=== PATIENT | female | born 1985 | race Hispanic/Latino ===

== ENCOUNTER 2017-04-06 02:25 | Observation (INO) | payer SELFPAY ==
[~2017-04-06] VITALS: Ht 154.9 cm; Wt 104.3 kg
[2017-04-06] MEDS ORDERED: DEXAMETHASONE SOD PHOSPHATE 10MG/ML 1ML VIAL ONE (02:42)
[2017-04-06] MEDS ORDERED: LIDOCAINE HCL 2% VISCOUS 15 ML UDCUP ONE (02:42)
[2017-04-06] MEDS ORDERED: LORAZEPAM 1 MG TABLET ONE (02:59)
[2017-04-06] MEDS ORDERED: KETOROLAC TROMETHAMINE 30MG/ML ONE (04:18)
[2017-04-06 04:26] LABS: HEMATOCRIT 39.5 % (36-48); LYMPHOCYTES % (AUTO) 10.1 % (21.0-51.0); MEAN CORPUSCULAR HEMOGLOBIN 28.2 pg (27.0-33.0); MEAN CORPUSCULAR HGB CONC 33.5 g/dL (32.0-36.0); MEAN CORPUSCULAR VOLUME 84.1 fL (79-99); MONOCYTES % (AUTO) 4.2 % (3.0-13.0); NEUTROPHILS % (AUTO) 82.7 % (40.0-77.0); NUCLEATED RED BLOOD CELLS 0.1 % (0.0-0.19); PLATELET COUNT (AUTO) 215 K/uL (130-400); RED CELL DISTRIBUTION WIDTH 14.4 % (11.0-15.5); WHITE BLOOD COUNT (AUTO) 17.4 K/uL (4.8-10.8)
[2017-04-06 04:33] LABS: CREATININE 0.7 mg/dL (0.5-1.5); POTASSIUM 4.2 mmol/L (3.5-5.1)
[2017-04-06] MEDS ORDERED: IOPAMIDOL-370 75 ML VIAL IV ONE (05:01)
[2017-04-06] MEDS ORDERED: AMPICILLIN SODIUM/SULBACTAM NA 1.5GM VIAL ONE ×2 (07:43→16:39)
[2017-04-06] MEDS ORDERED: UNASYN 3GM+NS 100ML 100 ML IV SCH (08:00)
[2017-04-06] MEDS ORDERED: ONDANSETRON HCL 4 MG/2 ML VIAL ONE ×2 (11:11→18:34)
[2017-04-06] MEDS ORDERED: MORPHINE SULFATE 2 MG/ML 1ML SYG ONE ×2 (11:11→18:34)
[2017-04-06] MEDS ORDERED: METRONIDAZOLE 500MG/100ML BAG 100 ML ONE ×2 (12:35→20:41)
[2017-04-06] MEDS ORDERED: METHYLPREDNISOLONE SOD SUCC 40MG/ML 1ML ONE (12:35)
[2017-04-06] MEDS ORDERED: IBUPROFEN 400 MG TABLET ONE (12:35)
[2017-04-06] MEDS ORDERED: MORPHINE-NS 50 MG/50 ML 50 ML IV PRN (20:45)
[2017-04-06] MEDS ORDERED: NALOXONE HCL 0.4 MG/1 ML ML IVP PRN (20:45)
[2017-04-06] MEDS ORDERED: IBUPROFEN 400 MG TABLET PO SCH (21:00)
[2017-04-06] MEDS ORDERED: ONDANSETRON ODT 4 MG TAB ONE (21:08)
[2017-04-06] MEDS ORDERED: METHYLPREDNISOLONE SOD SUCC 40MG/ML 1ML IVP ONE (21:45)
== END 2017-04-06 22:44 | disposition home or self-care (01) ==
LOC: EDH 02:25 → EDHIP 02:26 → UNDOADMOB 07:55 → EDHIP 07:55
PROVIDERS: ADMIT Internal Medicine; ATTEND Internal Medicine
DX: J02.9 Acute pharyngitis, unspecified (principal); Z90.49 Acquired absence of other specified parts of digestive tract
CPT/HCPCS: 36415; 70491; 80048; 81025; 85025; 87070; 87076; 99285; G0378 ×20; J0295 ×2; J1100; J1885; J2270; J2405 ×2; J2920; J3490 ×2; Q9967

== ENCOUNTER 2017-04-08 09:49 | Emergency (ER) | payer SELFPAY ==
[2017-04-08] MEDS ORDERED: DEXAMETHASONE SOD PHOSPHATE 10MG/ML 1ML VIAL ONE (10:27)
[2017-04-08] MEDS ORDERED: KETOROLAC TROMETHAMINE 60 MG/2 ML VIAL ONE (10:27)
== END 2017-04-08 11:19 | disposition home or self-care (01) ==
LOC: EDH 09:49
DX: J36 Peritonsillar abscess (principal); Z79.899 Other long term (current) drug therapy
CPT/HCPCS: 96372 ×2; 99284; J1100; J1885

== ENCOUNTER 2017-04-21 13:38 | Emergency (ER) | payer SELFPAY ==
[2017-04-21 14:20] LABS: EOSINOPHILS % (AUTO) 1.2 % (0.0-8.0); HEMATOCRIT 36.5 % (36-48); LYMPHOCYTES % (AUTO) 16.4 % (21.0-51.0); MEAN CORPUSCULAR HEMOGLOBIN 28.3 pg (27.0-33.0); MEAN CORPUSCULAR HGB CONC 33.9 g/dL (32.0-36.0); MEAN CORPUSCULAR VOLUME 83.4 fL (79-99); MONOCYTES % (AUTO) 10.6 % (3.0-13.0); NEUTROPHILS % (AUTO) 70.8 % (40.0-77.0); PLATELET COUNT (AUTO) 299 K/uL (130-400); RED BLOOD CELL COUNT(AUTO) 4.38 MIL/uL (4.00-5.50); RED CELL DISTRIBUTION WIDTH 14.7 % (11.0-15.5); WHITE BLOOD COUNT (AUTO) 6.9 K/uL (4.8-10.8)
[2017-04-21 14:26] LABS: CREATININE 0.9 mg/dL (0.5-1.5); POTASSIUM 3.9 mmol/L (3.5-5.1)
[2017-04-21 14:31] LABS: BILIRUBIN,URINE Small (NEGATIVE); COLOR,URINE Dark Yellow (YELLOW); GLUCOSE, URINE (UA) Negative (NEGATIVE); KETONES,URINE Trace mg/dL (NEGATIVE); LEUKOCYTE ESTERASE ,URINE Large (NEGATIVE); NITRATE,URINE Negative (NEGATIVE); OCCULT BLOOD,URINE Negative (NEGATIVE); PH,URINE 7.5 (5.0-8.0); PROTEIN,URINE Negative (NEGATIVE)
[2017-04-21 14:33] LABS: APPEARANCE,URINE SLIGHTLY CLOUDY (CLEAR)
[2017-04-21 14:38] LABS: AMPHET/METH SCREEN,URINE NEGATIVE (NEGATIVE); BARBITURATE SCREEN, URINE NEGATIVE (NEGATIVE); BENZODIAZEPINES SCREEN,URINE NEGATIVE (NEGATIVE); CANNABINOID SCREEN,URINE NEGATIVE (NEGATIVE); COCAINE SCREEN,URINE NEGATIVE (NEGATIVE); OPIATE SCREEN,URINE NEGATIVE (NEGATIVE); PHENCYCLIDINE SCREEN,URINE NEGATIVE (NEGATIVE)
[2017-04-21 14:45] LABS: BACTERIA,URINE Few /HPF (None Seen); RBC,URINE 0-1 /HPF (0-1)
[2017-04-21 14:46] LABS: SQUAMOUS EPITHELIAL CELL,UR Few /LPF (0-2); TRANSITIONAL EPI CELLS,URINE Few /LPF (None Seen)
[2017-04-21 14:47] LABS: TRICHOMONAS,URINE Rare /LPF (None Seen)
[2017-04-21] MEDS ORDERED: CEFTRIAXONE SODIUM 500 MG VIAL ONE (17:43)
[2017-04-21] MEDS ORDERED: LIDOCAINE HCL-MPF 1% 2ML VIAL ONE (17:44)
== END 2017-04-21 18:04 | disposition home or self-care (01) ==
LOC: EDH 13:38
DX: N39.0 Urinary tract infection, site not specified (principal); A59.9 Trichomoniasis, unspecified; R07.89 Other chest pain; R53.83 Other fatigue
CPT/HCPCS: 36415; 71046; 80048; 80305; 81001; 81025; 84702; 85025; 87804 ×2; 93005; 96372; 99285; J0696; J3490

== ENCOUNTER 2021-03-29 02:39 | Emergency (ER) | payer OTHER ==
[~2021-03-29] VITALS: Ht 154.9 cm; Wt 160.1 kg
[2021-03-29] MEDS ORDERED: IVER3TAB PO (07:25)
[2021-03-29] MEDS ORDERED: DOXY-336 PO (07:27)
[2021-03-29] MEDS ORDERED: BUDE0.255 IH (07:27)
[2021-03-29] MEDS ORDERED: ACETAMINOPHEN 500 MG TABLET PO SCH (07:30)
[2021-03-29 07:58] VITALS: BP 128/81
== END 2021-03-29 07:50 | disposition home or self-care (01) ==
LOC: EDH 02:39
DX: U07.1 COVID-19 (principal); J06.9 Acute upper respiratory infection, unspecified; E66.01 Morbid (severe) obesity due to excess calories; Z68.44 Body mass index [BMI] 60.0-69.9, adult; Z90.49 Acquired absence of other specified parts of digestive tract
CPT/HCPCS: 87635; 87804 ×2; 87880; 93005; 99285; C9803

== ENCOUNTER → 2021-07-24 | Outpatient (CLI) | payer OTHER ==
[~2021-07-24] MED LIST: BUDE0.255 IH; DOXY-336 PO; IVER3TAB PO
== END | disposition home or self-care (01) ==
LOC: RAH 08:42
PROVIDERS: ATTEND Surgery
DX: K21.9 Gastro-esophageal reflux disease without esophagitis (principal); K76.0 Fatty (change of) liver, not elsewhere classified; E66.2 Morbid (severe) obesity with alveolar hypoventilation
CPT/HCPCS: 74240

== ENCOUNTER 2021-10-09 01:13 | Emergency (ER) | payer OTHER ==
[~2021-10-09] VITALS: Ht 154.9 cm; Wt 155.1 kg
[2021-10-09 01:52] VITALS: BP 130/80
[2021-10-09] MEDS ORDERED: ONDA4TAB10 PO (02:00)
[2021-10-09] MEDS ORDERED: LOPE2CAP PO (02:00)
[2021-10-09] MEDS ORDERED: CIPR-278 PO (02:00)
== END 2021-10-09 02:12 | disposition home or self-care (01) ==
LOC: EDH 01:13
DX: K52.9 Noninfective gastroenteritis and colitis, unspecified (principal); Z90.49 Acquired absence of other specified parts of digestive tract
CPT/HCPCS: 99281

== ENCOUNTER 2021-12-20 22:29 | Emergency (ER) | payer OTHER ==
[~2021-12-20] VITALS: Ht 154.9 cm; Wt 151.5 kg
[~2021-12-20 22:29] MED LIST changes: +CIPR-278 PO; +LOPE2CAP PO; +ONDA4TAB10 PO
[2021-12-20] MEDS ORDERED: ACETAMINOPHEN 500 MG TABLET ONE (22:49)
[2021-12-20] MEDS ORDERED: KETOROLAC 30MG VIAL (30MG/ML) ONE (22:50)
[2021-12-20 22:58] LABS: HCG,QUALITATIVE URINE NEGATIVE (NEGATIVE)
[2021-12-20 22:59] LABS: APPEARANCE,URINE CLEAR (CLEAR); BILIRUBIN,URINE NEGATIVE (NEGATIVE); COLOR,URINE LIGHT-YELLOW (YELLOW); GLUCOSE, URINE (UA) >=1000 mg/dL (NEGATIVE); KETONES,URINE NEGATIVE (NEGATIVE); LEUKOCYTE ESTERASE ,URINE 75 Leu/uL (NEGATIVE); NITRATE,URINE NEGATIVE (NEGATIVE); OCCULT BLOOD,URINE SMALL (NEGATIVE); PH,URINE 7.5 (5.0-8.0); PROTEIN,URINE 20 mg/dL (NEGATIVE); UROBILINOGEN,URINE 0.2 mg/dL (0.2-1.0)
[2021-12-20] MEDS ORDERED: ACETAMINOPHEN 325 MG TAB PO ONE (23:00)
[2021-12-20] MEDS ORDERED: KETOROLAC 30MG VIAL (30MG/ML) IVP ONE (23:00)
[2021-12-20] MEDS ORDERED: ONDANSETRON 4MG INJ IVP ONE (23:00)
[2021-12-20] MEDS ORDERED: 0.9%NACL 1000ML 1,000 ML IV ONE (23:00)
[2021-12-20 23:03] LABS: BASOPHILS % (AUTO) 0.4 % (0.0-5.0); EOSINOPHILS % (AUTO) 0.6 % (0.0-8.0); HEMATOCRIT 38.6 % (36-48); LYMPHOCYTES % (AUTO) 24.6 % (21.0-51.0); MEAN CORPUSCULAR HEMOGLOBIN 27.7 pg (27.0-33.0); MEAN CORPUSCULAR HGB CONC 33.4 g/dL (32.0-36.0); MEAN CORPUSCULAR VOLUME 82.8 fL (79-99); MONOCYTES % (AUTO) 7.1 % (3.0-13.0); NEUTROPHILS % (AUTO) 66.9 % (40.0-77.0); PLATELET COUNT (AUTO) 309 K/uL (130-400); RED BLOOD CELL COUNT(AUTO) 4.66 MIL/uL (4.00-5.50); RED CELL DISTRIBUTION WIDTH 14.1 % (11.0-15.5); WHITE BLOOD COUNT (AUTO) 10.6 K/uL (4.8-10.8)
[2021-12-20 23:10] LABS: BACTERIA,URINE RARE /HPF (None Seen); MUCUS,URINE RARE LPF (None Seen); SQUAMOUS EPITHELIAL CELL,UR RARE /HPF (0-2); WBC,URINE 51-100 /HPF (0-1)
[2021-12-20 23:15] LABS: CREATININE 0.9 mg/dL (0.5-1.5); POTASSIUM 3.8 mmol/L (3.5-5.1)
[2021-12-20 23:20] LABS: ALBUMIN 2.9 g/dL (3.5-5.0); TOTAL PROTEIN, SERUM 8.1 g/dL (6.0-8.3)
[2021-12-20] MEDS ORDERED: ACETAMINOPHEN 500 MG TABLET PO ONE (23:30)
[2021-12-21] MEDS ORDERED: CEFTRIAXONE 1G VIAL IVP ONE
[2021-12-21 00:14] VITALS: BP 107/63
[2021-12-21] MEDS ORDERED: CEPH500B PO (00:51)
[2021-12-21] MEDS ORDERED: METF-446 PO (00:51)
== END 2021-12-21 01:03 | disposition home or self-care (01) ==
LOC: EDH 22:29
DX: N10 Acute pyelonephritis (principal); E11.65 Type 2 diabetes mellitus with hyperglycemia; Z79.1 Long term (current) use of non-steroidal anti-inflammatories (NSAID); Z79.84 Long term (current) use of oral hypoglycemic drugs; Z87.440 Personal history of urinary (tract) infections; Z90.49 Acquired absence of other specified parts of digestive tract
CPT/HCPCS: 99284; 74176; 96374; 96375; 96361; 80053; 85025; 87040 ×2; 87077; 87088; 87186; 83605; 81001; 81025; 36415; J0696; J1885

== ENCOUNTER 2022-10-26 12:00 | Inpatient (IN) | payer OTHER ==
[~2022-10-26] VITALS: Ht 154.9 cm; Wt 147.1 kg
[2022-10-27 10:45] LABS: BASOPHILS # (AUTO) 0.04 K/uL (0.00-0.20); BASOPHILS % (AUTO) 0.6 % (0.0-5.0); EOSINOPHILS # (AUTO) 0.12 K/uL (0.00-0.70); EOSINOPHILS % (AUTO) 1.7 % (0.0-8.0); HEMATOCRIT 38.3 % (36-48); IMMATURE GRANULOCYTE ABSOLUTE 0.02 K/uL (0-1); LYMPHOCYTES # (AUTO) 2.4 K/uL (1.0-4.8); LYMPHOCYTES % (AUTO) 33.5 % (21.0-51.0); MEAN CORPUSCULAR HEMOGLOBIN 26.7 pg (27.0-33.0); MEAN CORPUSCULAR HGB CONC 31.6 g/dL (32.0-36.0); MEAN CORPUSCULAR VOLUME 84.4 fL (79-99); MONOCYTES # (AUTO) 0.4 K/uL (0.1-1.0); NEUTROPHILS # (AUTO) 4.1 K/uL (1.8-7.7); NEUTROPHILS % (AUTO) 57.9 % (40.0-77.0); PLATELET COUNT (AUTO) 351 K/uL (130-400); RED BLOOD CELL COUNT(AUTO) 4.54 MIL/uL (4.00-5.50); RED CELL DISTRIBUTION WIDTH 14.2 % (11.0-15.5); WHITE BLOOD COUNT (AUTO) 7.1 K/uL (4.8-10.8)
[2022-10-27 10:59] LABS: ALBUMIN 2.9 g/dL (3.5-5.0); BILIRUBIN,TOTAL 0.5 mg/dL (0.2-1.0); CREATININE 0.7 mg/dL (0.5-1.5); POTASSIUM 4.2 mmol/L (3.5-5.1); TOTAL PROTEIN, SERUM 7.9 g/dL (6.0-8.3)
[2022-10-27 11:33] VITALS: BP 147/81; PULSE 69; RESP 18
[2022-10-29] VITALS (28 sets, daily range): BP systolic 114–155; BP diastolic 53–83; PULSE 58–81; RESP 16–24; O2SAT 100
[2022-10-29] MEDS ORDERED: METRONIDAZOLE 500MG/100ML BAG 200 ML ONE (08:04)
[2022-10-29] MEDS ORDERED: 0.9%NACL 1000ML 1,000 ML IV ONE (08:04)
[2022-10-29] MEDS ORDERED: CEFAZOLIN SODIUM 2 GM VIAL ONE (08:04)
[2022-10-29] MEDS ORDERED: MAGNESIUM SULFATE 1 GM/2 ML VIAL ONE (08:44)
[2022-10-29] MEDS ORDERED: MORPHINE PF 100MG/10ML AMP IV ONE (08:44)
[2022-10-29] MEDS ORDERED: SCOPOLAMINE HYDROBROMIDE 1 EACH ADH..PATCH TD ONE (09:41)
[2022-10-29] MEDS ORDERED: BUPIVACAINE/PF 0.5% 30ML VIAL ONE (10:12)
[2022-10-29] MEDS ORDERED: PROCHLORPERAZINE 10MG/2ML INJ IV PRN (10:30)
[2022-10-29] MEDS ORDERED: NALOXONE HCL 0.4 MG/1 ML ML IVP PRN (10:30)
[2022-10-29] MEDS ORDERED: ONDANSETRON 4MG INJ IVP PRN (10:30)
[2022-10-29] MEDS ORDERED: HYDROCODONE/ACETAMINOPHEN 7.5/325 MG 15 ML UDCUP PO PRN (10:30)
[2022-10-29] MEDS ORDERED: ACETAMINOPHEN 1,000 MG/100 ML VIAL IV ONE (10:54)
[2022-10-29] MEDS ORDERED: METOCLOPRAMIDE 10 MG/2 ML VIAL ONE (11:01)
[2022-10-29] MEDS: LACTATED RINGERS 1000ML 1,000 ML IV SCH ×3 (12:20→23:18)
[2022-10-29] MEDS: ENOXAPARIN SODIUM 30 MG/0.3 ML SQ SCH ×2 (12:21→23:21)
[2022-10-29] MEDS: MORPHINE 2 MG SYG IVP PRN ×3 (12:23→20:44)
[2022-10-29] MEDS: KETOROLAC 30MG VIAL (30MG/ML) IV PRN (15:29)
[2022-10-30] VITALS: BP 105/58; PULSE 54; RESP 18
[2022-10-30 04:00] VITALS: BP 148/67; PULSE 61; RESP 18
[2022-10-30] MEDS: MORPHINE 2 MG SYG IVP PRN (04:01)
[2022-10-30] MEDS: LACTATED RINGERS 1000ML 1,000 ML IV SCH ×2 (04:30→12:15)
[2022-10-30 07:55] VITALS: BP 141/66; PULSE 57; RESP 16
[2022-10-30 08:30] VITALS: O2SAT 96
[2022-10-30] MEDS: KETOROLAC 30MG VIAL (30MG/ML) IV PRN (08:59)
[2022-10-30] MEDS ORDERED: PANTOPRAZOLE 40 MG/VIAL IVP SCH (09:00)
[2022-10-30] MEDS: ENOXAPARIN SODIUM 30 MG/0.3 ML SQ SCH (10:54)
[2022-10-30 12:00] VITALS: BP 160/77; PULSE 65; RESP 16
[2022-10-30] MEDS ORDERED: SIMETHICONE 80 MG TAB.CHEW PO PRN (13:30)
[2022-10-30] MEDS ORDERED: SCOPOLAMINE HYDROBROMIDE 1 EACH ADH..PATCH TD SCH (13:30)
== END 2022-10-30 15:40 | disposition home or self-care (01) | DRG 621 ==
LOC: DAHIP 10-29 07:36 → 4DH 10-29 12:20
PROVIDERS: ADMIT Surgery; ATTEND Surgery
PROC: 0DJ08ZZ Inspection of Upper Intestinal Tract, Via Natural or Artificial Opening Endoscopic (ICD-10-PCS; 2022-10-29)
PROC: 8E0W4CZ Robotic Assisted Procedure of Trunk Region, Percutaneous Endoscopic Approach (ICD-10-PCS; 2022-10-29)
PROC: 0DB64Z3 Excision of Stomach, Percutaneous Endoscopic Approach, Vertical (ICD-10-PCS; principal; 2022-10-29 08:21)
DX: E66.01 Morbid (severe) obesity due to excess calories (principal); Z68.44 Body mass index [BMI] 60.0-69.9, adult; Z20.822 Contact with and (suspected) exposure to COVID-19
CPT/HCPCS: 36415; 43235; 80053; 81025; 82948; 85025; 86850; 86900; 86901; 87426; 93005; 97039; C9113; G0378; J1650; J1885; J2270; J2274; J2765; J3475; J3490; J7030; A4215; A4221; A4222; A4223; A4600; A6260; G8980-CI; G8983-CI; J0690

== ENCOUNTER 2022-11-16 12:02 | Emergency (ER) | payer OTHER ==
[~2022-11-16] VITALS: Ht 154.9 cm; Wt 135.6 kg
[2022-11-16 13:04] LABS: HEMATOCRIT 38.8 % (36-48); MEAN CORPUSCULAR HEMOGLOBIN 27.5 pg (27.0-33.0); MEAN CORPUSCULAR HGB CONC 33.5 g/dL (32.0-36.0); RED BLOOD CELL COUNT(AUTO) 4.73 MIL/uL (4.00-5.50); WHITE BLOOD COUNT (AUTO) 7.5 K/uL (4.8-10.8)
[2022-11-16 13:12] LABS: CREATININE 0.8 mg/dL (0.5-1.5); POTASSIUM 3.8 mmol/L (3.5-5.1)
[2022-11-16 13:16] LABS: ALBUMIN 2.8 g/dL (3.5-5.0); BILIRUBIN,TOTAL 0.6 mg/dL (0.2-1.0); TOTAL PROTEIN, SERUM 7.5 g/dL (6.0-8.3)
[2022-11-16] MEDS ORDERED: ONDANSETRON 4MG INJ IVP ONE (13:30)
[2022-11-16 14:59] LABS: APPEARANCE,URINE CLOUDY (CLEAR); BILIRUBIN,URINE 1 mg/dL (NEGATIVE); COLOR,URINE YELLOW (YELLOW); GLUCOSE, URINE (UA) NEGATIVE (NEGATIVE); KETONES,URINE 150 mg/dL (NEGATIVE); LEUKOCYTE ESTERASE ,URINE 500 Leu/uL (NEGATIVE); NITRATE,URINE NEGATIVE (NEGATIVE); OCCULT BLOOD,URINE LARGE (NEGATIVE); PROTEIN,URINE 100 mg/dL (NEGATIVE); UROBILINOGEN,URINE >=8.0 mg/dL (0.2-1.0)
[2022-11-16 15:01] LABS: ADD UA MICROSCOPIC YES
[2022-11-16 15:08] LABS: BACTERIA,URINE MOD /HPF (None Seen); MUCUS,URINE FEW LPF (None Seen); RBC,URINE 51-100 /HPF (0-1); SQUAMOUS EPITHELIAL CELL,UR MOD /HPF (0-2); UNCLASSIFIED CRYSTAL 2 /HPF (None Seen); WBC,URINE 51-100 /HPF (0-1)
[2022-11-16] MEDS ORDERED: CEFTRIAXONE 1G VIAL IVPB ONE (15:30)
[2022-11-16] MEDS ORDERED: ONDA4TAB10 PO (15:53)
[2022-11-16 16:03] VITALS: BP 112/62; PULSE 64; RESP 16; O2SAT 99
== END 2022-11-16 16:06 | disposition home or self-care (01) ==
LOC: EDH 12:02
DX: N39.0 Urinary tract infection, site not specified (principal); R11.2 Nausea with vomiting, unspecified; E11.9 Type 2 diabetes mellitus without complications; Z90.49 Acquired absence of other specified parts of digestive tract; Z98.890 Other specified postprocedural states
CPT/HCPCS: 99284; 96365; 96375; 80053; 83690; 85027; 87077; 87088; 87186; 81001; 36415; 93005; J0696; J2405

== ENCOUNTER 2023-06-24 04:18 | Emergency (ER) | payer OTHER ==
[~2023-06-24] VITALS: Ht 154.9 cm; Wt 109.3 kg
[~2023-06-24 04:18] MED LIST changes: -BUDE0.255 IH; -CIPR-278 PO; -DOXY-336 PO; -IVER3TAB PO; -LOPE2CAP PO
[2023-06-24] MEDS ORDERED: 0.9%NACL 1000ML 477 ML IV ONE (04:30)
[2023-06-24 05:02] LABS: BASOPHILS # (AUTO) 0.06 K/uL (0.00-0.20); BASOPHILS % (AUTO) 0.9 % (0.0-5.0); EOSINOPHILS # (AUTO) 0.02 K/uL (0.00-0.70); EOSINOPHILS % (AUTO) 0.3 % (0.0-8.0); HEMATOCRIT 39.1 % (36-48); IMMATURE GRANULOCYTE ABSOLUTE 0.02 K/uL (0-1); LYMPHOCYTES # (AUTO) 1.6 K/uL (1.0-4.8); LYMPHOCYTES % (AUTO) 23.2 % (21.0-51.0); MEAN CORPUSCULAR HEMOGLOBIN 29.1 pg (27.0-33.0); MEAN CORPUSCULAR HGB CONC 33.2 g/dL (32.0-36.0); MEAN CORPUSCULAR VOLUME 87.5 fL (79-99); MONOCYTES # (AUTO) 0.6 K/uL (0.1-1.0); MONOCYTES % (AUTO) 8.7 % (3.0-13.0); NEUTROPHILS # (AUTO) 4.5 K/uL (1.8-7.7); NEUTROPHILS % (AUTO) 66.6 % (40.0-77.0); PLATELET COUNT (AUTO) 219 K/uL (130-400); RED BLOOD CELL COUNT(AUTO) 4.47 MIL/uL (4.00-5.50); RED CELL DISTRIBUTION WIDTH 13.6 % (11.0-15.5); WHITE BLOOD COUNT (AUTO) 6.8 K/uL (4.8-10.8)
[2023-06-24] MEDS: CEFTRIAXONE 2GM VIAL IVPB ONE (05:10)
[2023-06-24] MEDS: FAMOTIDINE 20MG VIAL IV ONE (05:10)
[2023-06-24] MEDS: METOCLOPRAMIDE 10 MG/2 ML VIAL IVP ONE (05:10)
[2023-06-24 05:11] LABS: CREATININE 0.6 mg/dL (0.5-1.0); POTASSIUM 3.9 mmol/L (3.5-5.1)
[2023-06-24] MEDS: MORPHINE 4 MG SYG IVP ONE (05:11)
[2023-06-24] MEDS: 0.9%NACL 1000ML 2,000 ML IV ONE (05:15)
[2023-06-24] MEDS ORDERED: IOHEXOL-350 75 ML VIAL IV ONE (06:44)
[2023-06-24] MEDS: SOLU-MEDROL 125MG VIAL IVP ONE (09:58)
[2023-06-24] MEDS: UNASYN 3GM VIAL IV SCH (10:01)
[2023-06-24] MEDS: AMP/SULBAC 3GM+NS 100ML 100 ML IV ONE ×2 (10:02→16:11)
[2023-06-24] MEDS: KETOROLAC 15MG/ML VIAL (15MG/ML) IV ONE (12:09)
[2023-06-24] MEDS: LACTATED RINGERS 1000ML 1,000 ML IV SCH (12:09)
[2023-06-24 15:34] LABS: APPEARANCE,URINE CLEAR (CLEAR); BILIRUBIN,URINE NEGATIVE (NEGATIVE); COLOR,URINE LIGHT-YELLOW (YELLOW); GLUCOSE, URINE (UA) NEGATIVE (NEGATIVE); KETONES,URINE 40 mg/dL (NEGATIVE); LEUKOCYTE ESTERASE ,URINE 250 Leu/uL (NEGATIVE); NITRATE,URINE NEGATIVE (NEGATIVE); PH,URINE 6.5 (5.0-8.0); PROTEIN,URINE NEGATIVE (NEGATIVE); UROBILINOGEN,URINE 3 mg/dL (0.2-1.0)
[2023-06-24 15:36] LABS: ADD UA MICROSCOPIC YES
[2023-06-24 15:38] LABS: MUCUS,URINE RARE LPF (None Seen); SQUAMOUS EPITHELIAL CELL,UR MANY /HPF (0-2)
[2023-06-24 16:47] VITALS: BP 101/53; PULSE 54; RESP 18; O2SAT 97
== END 2023-06-24 16:57 | disposition short-term general hospital (02) ==
LOC: EDH 04:18
DX: J36 Peritonsillar abscess (principal)
CPT/HCPCS: 99285; 96375; 96374; 70491; 96361; 80048; 84703; 85025; 87040 ×2; 87088; 87880; 83605; 81001; 36415; J7120; J3490; J7030 ×2; J2930; J0696; J2270; J0295 ×3; J2765; J1885; Q9967; 96376

== ENCOUNTER 2023-12-13 10:16 | Inpatient (IN) | payer OTHER ==
[~2023-12-13] VITALS: Ht 154.9 cm; Wt 90.3 kg
[~2023-12-13 10:16] MED LIST changes: +ONDA-243 PO; -ONDA4TAB10 PO
[2023-12-13 10:38] LABS: BASOPHILS # (AUTO) 0.07 K/uL (0.00-0.20); BASOPHILS % (AUTO) 0.9 % (0.0-5.0); EOSINOPHILS # (AUTO) 0.19 K/uL (0.00-0.70); EOSINOPHILS % (AUTO) 2.4 % (0.0-8.0); HEMATOCRIT 40.6 % (36-48); IMMATURE GRANULOCYTE ABSOLUTE 0.01 K/uL (0-1); LYMPHOCYTES # (AUTO) 3.6 K/uL (1.0-4.8); MEAN CORPUSCULAR HEMOGLOBIN 28.6 pg (27.0-33.0); MEAN CORPUSCULAR HGB CONC 32.3 g/dL (32.0-36.0); MEAN CORPUSCULAR VOLUME 88.6 fL (79-99); MONOCYTES # (AUTO) 0.6 K/uL (0.1-1.0); MONOCYTES % (AUTO) 7.1 % (3.0-13.0); NEUTROPHILS # (AUTO) 3.7 K/uL (1.8-7.7); NEUTROPHILS % (AUTO) 45.5 % (40.0-77.0); PLATELET COUNT (AUTO) 240 K/uL (130-400); RED BLOOD CELL COUNT(AUTO) 4.58 MIL/uL (4.00-5.50); RED CELL DISTRIBUTION WIDTH 13.5 % (11.0-15.5); WHITE BLOOD COUNT (AUTO) 8.1 K/uL (4.8-10.8)
[2023-12-13 10:49] LABS: INR 0.96 (0.85-1.15); PROTHROMBIN TIME 10.4 SEC (9.6-11.6)
[2023-12-13 10:50] LABS: PARTIAL THROMBOPLASTIN TIME 28.5 SEC (26.3-35.5)
[2023-12-13 10:56] LABS: CREATININE 0.7 mg/dL (0.5-1.0); POTASSIUM 3.9 mmol/L (3.5-5.1)
[2023-12-13 11:02] LABS: B-TYPE NATRIURETIC PEPTIDE 39 pg/mL (0-100)
[2023-12-13] MEDS: 0.9%NACL 1000ML 1,000 ML IV ONE (12:17)
[2023-12-13 12:31] LABS: APPEARANCE,URINE CLEAR (CLEAR); BILIRUBIN,URINE NEGATIVE (NEGATIVE); COLOR,URINE LIGHT-YELLOW (YELLOW); GLUCOSE, URINE (UA) NEGATIVE (NEGATIVE); KETONES,URINE NEGATIVE (NEGATIVE); LEUKOCYTE ESTERASE ,URINE NEGATIVE Leu/uL (NEGATIVE); NITRATE,URINE NEGATIVE (NEGATIVE); OCCULT BLOOD,URINE NEGATIVE (NEGATIVE); PH,URINE 6.5 (5.0-8.0); PROTEIN,URINE NEGATIVE (NEGATIVE); UROBILINOGEN,URINE 0.2 mg/dL (0.2-1.0)
[2023-12-13 12:34] LABS: ADD UA MICROSCOPIC NO
[2023-12-13] MEDS ORDERED: ONDANSETRON 4MG INJ IVP PRN (13:00)
[2023-12-13] MEDS: acetaMINOPHEN 325 MG TAB PO PRN (16:19)
[2023-12-13] MEDS: LORazepam 2 MG/ML 1 ML VIAL IVP ONE (16:32)
[2023-12-13 20:58] VITALS: O2SAT 98
[2023-12-13] MEDS: valaCYCLOvir HCL 500 MG TABLET PO SCH (21:20)
[2023-12-13] MEDS: PREDNISONE 20 MG TABLET PO SCH (21:20)
[2023-12-13 22:00] VITALS: BP 100/59; PULSE 98; RESP 18; TEMP 98.9
[2023-12-14 04:00] VITALS: BP 115/63; PULSE 82; RESP 18; TEMP 98.7
[2023-12-14 05:23] LABS: BASOPHILS # (AUTO) 0.02 K/uL (0.00-0.20); BASOPHILS % (AUTO) 0.3 % (0.0-5.0); HEMATOCRIT 40.6 % (36-48); IMMATURE GRANULOCYTE ABSOLUTE 0.03 K/uL (0-1); LYMPHOCYTES % (AUTO) 13.8 % (21.0-51.0); MEAN CORPUSCULAR HEMOGLOBIN 28.9 pg (27.0-33.0); MEAN CORPUSCULAR HGB CONC 32.3 g/dL (32.0-36.0); MEAN CORPUSCULAR VOLUME 89.4 fL (79-99); MONOCYTES # (AUTO) 0.1 K/uL (0.1-1.0); MONOCYTES % (AUTO) 0.8 % (3.0-13.0); NEUTROPHILS # (AUTO) 6.4 K/uL (1.8-7.7); NEUTROPHILS % (AUTO) 84.7 % (40.0-77.0); PLATELET COUNT (AUTO) 239 K/uL (130-400); RED BLOOD CELL COUNT(AUTO) 4.54 MIL/uL (4.00-5.50); WHITE BLOOD COUNT (AUTO) 7.6 K/uL (4.8-10.8)
[2023-12-14 05:48] LABS: BILIRUBIN,TOTAL 0.3 mg/dL (0.2-1.0); CREATININE 0.8 mg/dL (0.5-1.0); POTASSIUM 4.3 mmol/L (3.5-5.1); TOTAL PROTEIN, SERUM 7.4 g/dL (6.0-8.3)
[2023-12-14 08:53] VITALS: BP 97/59; PULSE 60; RESP 17; TEMP 98.3
[2023-12-14] MEDS: atorVAStatin 20 MG TABLET PO SCH (09:28)
[2023-12-14] MEDS: ASPIRIN 81MG CHEW TAB PO SCH (09:28)
[2023-12-14] MEDS: THIAMINE HCL 100 MG/ML 2ML VIAL IVP ONE (09:29)
[2023-12-14 11:35] VITALS: BP 125/68; PULSE 60; RESP 28; TEMP 98.4
[2023-12-14 14:58] LABS: HEMOGLOBIN A1C 5.5 % (4.0-6.0)
[2023-12-14 15:26] LABS: CHOLESTEROL 179 mg/dL (<200); HDL CHOLESTEROL 54 mg/dL (35-85); LDL DIRECT 107 mg/dL (0-99); TRIGLYCERIDES 88 mg/dL (30-200)
[2023-12-14 16:00] VITALS: BP 90/49; PULSE 61; RESP 16; TEMP 98.4
== END 2023-12-14 17:35 | disposition home or self-care (01) | DRG 69 ==
LOC: EDH 10:16 → EDHIP 12:37 → 3CH 22:09
PROVIDERS: ADMIT Internal Medicine Infectious Disease; ATTEND Internal Medicine Infectious Disease
DX: G45.9 Transient cerebral ischemic attack, unspecified (principal); G51.0 Bell's palsy; E66.01 Morbid (severe) obesity due to excess calories; E11.9 Type 2 diabetes mellitus without complications; G47.33 Obstructive sleep apnea (adult) (pediatric); G43.909 Migraine, unspecified, not intractable, without status migrainosus; F41.9 Anxiety disorder, unspecified; K76.0 Fatty (change of) liver, not elsewhere classified; Z79.82 Long term (current) use of aspirin; Z90.49 Acquired absence of other specified parts of digestive tract; Z98.84 Bariatric surgery status; Z90.3 Acquired absence of stomach [part of]; Z68.37 Body mass index [BMI] 37.0-37.9, adult
CPT/HCPCS: 36415; 70450; 70551; 71045; 80048; 80053; 80061; 81003; 82306; 82550; 82607; 82746; 82948; 83036; 83721; 83735; 83880; 84207; 84443; 84484; 85025; 85610; 85730; 92522; 92610; 93005; 93306; G0378; J2060; J3411

== ENCOUNTER 2024-04-30 02:01 | Emergency (ER) | payer OTHER ==
[~2024-04-30] VITALS: Ht 154.9 cm; Wt 81.6 kg
--- NOTE | 2024-04-30 02:09 | NUR ---
UA CUP PROVIDED
--- NOTE | 2024-04-30 02:37 | ERN ---
ED Note History of Present Illness Stated Complaint: RT SHOULDER PAIN Chief Complaint: Shoulder Injury/Pain Time Seen by MD: 02:06 Dictation: This is a 38-year-old morbidly obese female who presented to the emergency room with complaints of right shoulder pain. She denied history of any fall or injury. She reports reduced mobility in the right shoulder and is unable to lift her right arm all the way up She denied any numbness of the arm No known history of hypertension but she is a diabetic. She stopped taking all the medications last year after she had a VSG surgery(vertical sleeve gastrectomy) Vital signs temperature 98.1 pulse 74 respirations 18 blood pressure 118/84 with a pulse oximetry of 100% on room air Allergies: Coded Allergies: No Known Drug Allergies (Verified Allergy, 03/14/12) Home Meds Active Scripts Tramadol Hcl (Tramadol HCl) 50 Mg Tablet, 50 MG PO QID for pain, #16 TAB 0 Refills Prov:HUMA DOE MD 04/30/24 Past Medical History Past Medical History: Diabetes-Type II, Other Additional Past Medical Hx: HX OF PERITONSILLAR ABSCESS Surgical History: Appendectomy, Cholecystectomy, Bariatric Surgery, Surgical History Other: VSG Family History: Negative Social History: Negative, Other LMP: Apr 21, 2024 RN Note Reviewed/Agreed w/PFSH: Yes Review of System Dictation Constitutional: Negative for fever,chills, and weight loss Eyes: Negative for injury, pain,redness, and discharge ENT: Negative for injury,pain or swelling Cardiovascular: Negative for chest pain, palpitations, and edema Respiratory: Negative for shortness of breath, cough, and wheezing, Abdomen/GI: Negative for abdominal pain, nausea, vomiting, diarrhea, and consti pation Back: Negative for injury and pain : Negative for injury, bleeding and discharge MS/Extremity: Negative for injury and deformity. Complaints of right shoulder pain Skin: Negative for rash, and discoloration Neuro: Negative for headache, weakness, numbness, tingling, and seizure Psych: Negative for suicide ideation, homicidal ideation, and hallucinations Initial Vital Sign VS Vital Signs Date Time Temp Pulse Resp B/P (MAP) Pulse Ox O2 Delivery O2 Flow Rate FiO2 04/30/24 02:03 98.1 74 18 118/84 100 Room Air 04/30/24 04:33 0 21 Physical Exam Dictation General: awake, alert, NAD Head/Face: Normocephalic, atraumatic Eyes: PERRL, EOMI, vision at baseline ENT: oral cavity clear, TMs clear, no signs of infection Neck: Trachea midline, supple, no nuchal rigidity Cardiovascular: RRR, normal S1/S2, No MRGs, no JVD Respiratory: CTAB, no respiratory distress, No rales or wheezes Abdomen: Soft, non-tender, non-distended, normal bowel sounds, no guarding or rebound. Skin: Warm, dry, normal turgor, no rash MS/Extremity: Pulses equal, no cyanosis, neurovascular intact, FROM Neuro: COAx4, GCS 15, strength 5/5, CN 2-12 intact, normal cerebellar exam, normal gait, Psych: Normal behavior, mood, and affect normal Extremities-trace edema without any palpable cords, Homans sign is negative Results (Laboratory/Radiology) Laboratory/Radiology Laboratory Tests Test 04/30/24 02:14 Urine HCG, Qualitative NEGATIVE (NEGATIVE) Labs Reviewed?: Yes ED Course ED Course Orders Procedure Category Date Status Time ,Urine Test LAB 04/30/24 Complete 02:07 Ketorolac PHA 04/30/24 Complete Tromethamine 30mg/Ml 03:00 Sling ORESTES 04/30/24 Complete 03:08 Apply Ice Pack To: CPOE 04/30/24 Transmitted (Er) 03:08 Ketorolac PHA 04/30/24 Complete Tromethamine 15mg/Ml 04:30 Current Medications Medications (Trade) Dose Ordered Sig/Renetta Route PRN Reason Start Time Stop Time Status Last Admin Dose Admin Ketorolac Tromethamine (toRADol) 15 mg ONCE ONCE IM 04/30/24 04:30 04/30/24 04:31 DC 04/30/24 04:32 Ketorolac Tromethamine (toRADol) 30 mg ONCE ONCE IM 04/30/24 03:00 04/30/24 03:01 DC 04/30/24 03:07 Vital Signs Date Time Temp Pulse Resp B/P (MAP) Pulse Ox O2 Delivery O2 Flow Rate FiO2 04/30/24 04:33 98.2 49 18 118/63 100 Room Air* 0 21 04/30/24 02:03 98.1 74 18 118/84 100 Room Air We will perform diagnostic labs, and administer medications according to the patient's complaint. Once the results are available, will review and personally interpreted the labs to rule out any acute life-threatening emergency the trach require immediate intervention and treatment. I will then re-evaluate the patient after treatment and diagnostic exams have return to determine whether the patient requires any further testing, can safely be discharged home or need further admission to hospital for additional treatment and evaluation. Ice pack and pain medications given Patient also was given a shoulder sling/brace and referred to Orthopedics for further management Medical Decision Making MDM MDM: Differential diagnosis: Sprain, rotator cuff tear, bursitis, tendonitis, degenerative arthritis Rationale: Tests considered and ordered secondary to shared decision making include: Previous outside records reviewed: Old ER visits. Risk of complication and/or morbidity or mortality of patient management: None Medications-Per medication reconciliation Need for hospitalization: Patient does not meet criteria for hospitalization. Need for emergency major/minor surgery: No There are no social concerns with this patient. Prescription drug management Prescriptions will include symptomatic care Patient's prior external medical records from other ER visits were reviewed by me as indicated. Prior testing and results from previous visits were reviewed. Prior tests were taken into account with medical decision making and resource utilization, independent historian/historians were used to obtain complete medical history. I independently interpreted the test that were performed, results were reviewed by me and considered findings on radiology if ordered. Medical management and examination interpretation discussions were had by me with other qualified healthcare professionals as indicated for the patient's care. Problem List Problem List: (1) Right shoulder pain DX & DISP Disposition: Discharge Departure Impression: Primary Impression: Right shoulder pain Condition: Stable Scripts Tramadol Hcl (Tramadol HCl) 50 Mg Tablet 50 MG PO QID for pain, #16 TAB 0 Refills Prov: HUMA DOE MD 04/30/24 Additional Instructions: Patient and the caregiver have been informed of all the diagnostic tests and the imaging conducted during the today's visit to the emergency room and has verbalized understanding of the results I have personally reviewed and interpreted all diagnostic exams performed here in the ER today as well as the vital signs documented by the nursing staff. The patient is now being discharged to home and should follow up with the primary care physician or the specialist as directed by the ER staff. Follow-up with primary care provider in 1 to 2 days. Take medications as directed here in the emergency room. Okay to continue home medications unless otherwise discussed during your visit in the emergency room today. Return to your nearest emergency room if symptoms worsen or if there is no improvement. Call 911 if you need immediate assistance. Take Tylenol or Motrin [id number] as needed and if no contraindications are present. Increase oral hydration. A wound culture or urine culture was ordered here in the emergency room department please follow-up with primary care provider and advise them to get repeat ports from our facility. If you had any Timothy wrap/splints that were applied here, please do not remove them until you see your primary care or specialty. Referrals: JAMIE PERRY MD (PCP) MARIO BUI MD, ANURADHA R MD Apr 30, 2024 02:37
[2024-04-30] MEDS: ketOROlac 30MG VIAL (30MG/ML) IM ONE (03:07)
[2024-04-30] MEDS ORDERED: TRAM50TA4 PO (04:24)
[2024-04-30] MEDS: ketOROlac 15MG/ML VIAL (15MG/ML) IM ONE (04:32)
[2024-04-30 04:33] VITALS: BP 118/63; PULSE 49; RESP 18; TEMP 98.2; O2SAT 100
== END 2024-04-30 04:40 | disposition home or self-care (01) ==
LOC: EDH 02:01
DX: M25.511 Pain in right shoulder (principal); E11.9 Type 2 diabetes mellitus without complications; Z90.49 Acquired absence of other specified parts of digestive tract; Z98.890 Other specified postprocedural states
CPT/HCPCS: 99284; 81025; 96372 ×2; J1885 ×2; 29105

== ENCOUNTER → 2024-05-30 | Emergency (ER) | payer OTHER ==
[~2024-05-30] MED LIST changes: -ONDA-243 PO; +TRAM50TA4 PO
--- NOTE | 2024-05-30 20:46 | NUR ---
PT CALLED FROM [facility] FOR E[facility], NO ANSWER
--- NOTE | 2024-05-30 20:54 | NUR ---
CALLED FOR PT FROM [facility]; NO ANSWER; PT NOT FOUND IN [facility].
== END ==
LOC: EDH 19:36
DX: R00.2 Palpitations (principal); Z53.21 Procedure and treatment not carried out due to patient leaving prior to being seen by health care provider